=== PATIENT | female | born 1945 | race Caucasian/White ===

== ENCOUNTER 2017-06-07 23:00 | Emergency (ER) | payer MEDICARE, OTHER ==
[2017-06-07] MEDS ORDERED: Zofran 4 MG/2 ML VIAL IV ONE (23:22)
[2017-06-07] MEDS ORDERED: Sodium Chloride 0.9% 1000 ML 1,000 ML IV STA (23:22)
--- NOTE | 2017-06-07 23:28 | ERPHSYRPT ---
- History of Present Illness Time Seen by Provider: 06/07/17 23:16 Source: patient, family Exam Limitations: no limitations Patient Subjective Stated Complaint: pt c/o of nausea, vomiting and fatigue worsening this evening. reports vomiting tonight x3 episodes. states she has been receiving chemotherapy for pancreatic cancer for 5 months. states she has no strength. reports pt had treatment today at [facility] after a week break. Triage Nursing Assessment: pt is aox3, pupils perrl, resps easy and non labored , radial pulses strong and equal. pt is pale warm and dry. skin is loose. pt appears weak. vomitus present on nightgown. pt noted to left chest. Physician History: 71 y/o female with history of pancreatic cancer brought in by ambulance for 2 episodes of nausea and vomiting after restarting her chemotherapy today. Pt's chemo regimen is 3 weeks on and 1 week off. Pt states that was off for a week and started today. Pt also feels very weak and can barely lift herself. The believes she was choking on her vomit. Pt has been having a mild cough. Pt denies any fever, chills, chest pain, shortness of breath, abdominal pain or dizziness. Timing/Duration: today Severity: moderate Associated Symptoms: nausea, vomiting Allergies/Adverse Reactions: corn Allergy (Verified 06/07/17 23:34) Hx Tetanus, Diphtheria Vaccination/Date Given: Yes Hx Influenza Vaccination/Date Given: No Hx Pneumococcal Vaccination/Date Given: No Immunizations Up to Date: Yes - Review of Systems Constitutional: Fatigue, Lethargy, Weakness, No Fever, No Chills Eyes: No Symptoms Ears, Nose, & Throat: No Symptoms Respiratory: Cough, No Dyspnea Cardiac: No Chest Pain, No Edema, No Syncope Abdominal/Gastrointestinal: No Abdominal Pain, No Nausea, No Vomiting, No Diarrhea Genitourinary Symptoms: No Dysuria Musculoskeletal: No Back Pain, No Neck Pain Skin: No Rash Neurological: No Dizziness, No Focal Weakness, No Sensory Changes Psychological: No Symptoms Endocrine: No Symptoms All Other Systems: Reviewed and Negative - Past Medical History Pertinent Past Medical History: Yes Endocrine Medical History: Hypothyroidism Other Medical History: pancreatic cancer DX October 2016. began chemo January - Past Surgical History Past Surgical History: Yes Gastrointestinal: Cholecystectomy Other Surgical History: whipple - 40% of pancreas removed. thyroidectomy - Social History Smoking Status: Never smoker Drug Use: none Patient Lives Alone: No - Female History Hx Now: No - Nursing Vital Signs Nursing Vital Signs: Initial Vital Signs Temperature 99.9 F 06/07/17 23:02 Pulse Rate 117 H 06/07/17 23:02 Respiratory Rate 16 06/07/17 23:02 Blood Pressure 140/74 06/07/17 23:02 O2 Sat by Pulse Oximetry 96 06/07/17 23:02 Pain Scale Pain Intensity 1 - Physical Exam General Appearance: alert, lethargy, cachetic Eye Exam: PERRL/EOMI, eyes nml inspection Ears, Nose, Throat Exam: normal ENT inspection, TMs normal, pharynx normal, moist mucous membranes Neck Exam: normal inspection, non-tender, supple, full range of motion Respiratory Exam: normal breath sounds, lungs clear, No respiratory distress Cardiovascular Exam: regular rate/rhythm, normal heart sounds, normal peripheral pulses Gastrointestinal/Abdomen Exam: soft, normal bowel sounds, No tenderness, No mass Back Exam: normal inspection, normal range of motion, No CVA tenderness, No vertebral tenderness Extremity Exam: normal inspection, normal range of motion, pelvis stable Neurologic Exam: alert, oriented x 3, cooperative, normal mood/affect, nml cerebellar function, nml station & gait, sensation nml, No motor deficits Skin Exam: normal color, warm, dry, No rash Lymphatic Exam: No adenopathy SpO2: 96 Oxygen Delivery: Room Air - Course Nursing assessment & vital signs reviewed: Yes Ordered Tests: Active Orders 24 hr Category Date Time Status IV Insertion STAT Care 06/07/17 23:22 Active CHEST 1 VIEW (PORTABLE) Stat Exams 06/07/17 23:23 Taken AMYLASE Stat Lab 06/07/17 23:45 Completed BLOOD CULTURE Stat Lab 06/07/17 23:22 Received CBC W DIFF Stat Lab 06/07/17 23:45 Completed CMP Stat Lab 06/07/17 23:45 Completed CULTURE,URINE Stat Lab 06/07/17 23:55 Received HCG,QUALITATIVE URINE Stat Lab 06/08/17 Uncollected LIPASE Stat Lab 06/07/17 23:45 Completed Lactic Acid Stat Lab 06/07/17 23:44 Completed Lactic Acid Stat Lab 06/08/17 02:10 Completed Manual Differential NC Stat Lab 06/07/17 23:45 Completed UA W/ MICROSCOPIC Stat Lab 06/07/17 23:55 Completed Medication Summary Discontinued Medications Generic Name Dose Route Start Last Admin Trade Name Luis PRN Reason Stop Dose Admin Sodium Chloride 1,000 mls @ 999 mls/hr 06/07/17 23:22 06/07/17 23:45 Sodium Chloride 0.9% 1000 Ml IV 06/08/17 00:22 999 mls/hr .Q1H1M STA Administration Sodium Chloride Confirm 06/07/17 23:41 Sodium Chloride 0.9% 1000 Ml Administered 06/07/17 23:42 Dose 1,000 mls @ ud .ROUTE .STK-MED ONE Potassium Chloride 20 meq in 100 mls @ 50 mls/hr 06/08/17 00:30 06/08/17 01: 12 Potassium Chloride 20 Meq In Water 100ml IV 06/08/17 02:29 50 mls/hr STAT ONE Administration Potassium Chloride Confirm 06/08/17 00:33 Potassium Chloride 20 Meq In Water 100ml Administered 06/08/17 00:34 Dose 100 mls @ ud IV .STK-MED ONE Sodium Chloride 1,000 mls @ 999 mls/hr 06/08/17 01:03 06/08/17 01:12 Sodium Chloride 0.9% 1000 Ml IV 06/08/17 02:03 999 mls/hr .Q1H1M STA Administration Sodium Chloride Confirm 06/08/17 01:05 Sodium Chloride 0.9% 1000 Ml Administered 06/08/17 01:06 Dose 1,000 mls @ ud .ROUTE .STK-MED ONE Ondansetron HCl 4 mg 06/07/17 23:22 06/07/17 23:45 Zofran 4 Mg/2 Ml Vial IV 06/07/17 23:23 4 mg STAT ONE Administration Ondansetron HCl Confirm 06/07/17 23:41 Zofran 4 Mg/2 Ml Vial Administered 06/07/17 23:42 Dose 4 mg .ROUTE .STK-MED ONE Lab/Rad Data: Laboratory Result Diagrams 06/07/17 23:45 06/07/17 23:45 Laboratory Results 06/08/17 06/07/17 06/07/17 Range/Units 02:10 23:55 23:53 WBC (4.0-10.5) K/mm3 RBC (4.1-5.4) M/mm3 Hgb (12.0-16.0) gm/dl Hct (35-47) % MCV (78-100) fl MCH (26-32) pg MCHC (32-36) g/dl RDW (11.5-14.0) % Plt Count (150-450) K/mm3 MPV (6-9.5) fl Segmented Neutrophils (36.0-66.0) % Band Neutrophils (0.0-2.0) % Lymphocytes (Manual) (24-44) % Monocytes (Manual) (0.0-12.0) % Differential Comment Platelet Estimate (NORMAL) Anisocytosis Sodium (136-145) mEq/L Potassium (3.5-5.1) mEq/L Chloride (98-107) mEq/L Carbon Dioxide (21-32) mEq/L Anion Gap (5-15) MEQ/L BUN (9-20) mg/dL Creatinine (0.55-1.30) mg/dl Estimated GFR ML/MIN Glucose (70-110) MG/DL Lactic Acid 1.0 (0.4-2.0) Calcium (8.5-10.1) mg/dL Total Bilirubin (0.2-1.0) mg/dL AST (15-37) U/L ALT (12-78) U/L Alkaline Phosphatase (46-116) U/L Serum Total Protein (6.4-8.2) gm/dL Albumin (3.4-5.0) g/dL Amylase (25-115) U/L Lipase (73-393) U/L Ur Collection Type CCMS Urine Color YELLOW (YELLOW) Urine Appearance CLEAR (CLEAR) Urine pH 6.5 (5-6) Ur Specific Mary D 1.010 (1.005-1.025) Urine Protein NEGATIVE (Negative) Urine Ketones NEGATIVE (NEGATIVE) Urine Blood NEGATIVE (0-5) Dayo/ul Urine Nitrite NEGATIVE (NEGATIVE) Urine Bilirubin NEGATIVE (NEGATIVE) Urine Urobilinogen NORMAL (0-1) mg/dL Ur Leukocyte Esterase 1+ (NEGATIVE) Urine Microscopic RBC 0-2 (0-2) /HPF Urine Microscopic WBC 5-10 (0-5) /HPF Ur Epithelial Cells MANY (FEW) /HPF Urine Bacteria RARE (NEGATIVE) /HPF Urine Culture Reflexed YES (NO) Urine Glucose NEGATIVE (NEGATIVE) mg/dL Influenza Type A Ag NEGATIVE (NEGATIVE) Influenza Type B Ag NEGATIVE (NEGATIVE) RSV (PCR) NEGATIVE (Negative) Specimen Received 06-08-17 0100 06/07/17 06/07/17 06/07/17 Range/Units 23:45 23:45 23:44 WBC 8.1 (4.0-10.5) K/mm3 RBC 2.70 L (4.1-5.4) M/mm3 Hgb 9.3 L (12.0-16.0) gm/dl Hct 27.9 L (35-47) % MCV 103.3 H (78-100) fl MCH 34.4 H (26-32) pg MCHC 33.3 (32-36) g/dl RDW 14.4 H (11.5-14.0) % Plt Count 129 L (150-450) K/mm3 MPV 10.4 H (6-9.5) fl Segmented Neutrophils 87 H (36.0-66.0) % Band Neutrophils 5 H (0.0-2.0) % Lymphocytes (Manual) 5 L (24-44) % Monocytes (Manual) 3 (0.0-12.0) % Differential Comment ABNORMAL Platelet Estimate DECREASED (NORMAL) Anisocytosis 1+ Sodium 141 (136-145) mEq/L Potassium 2.6 L* (3.5-5.1) mEq/L Chloride 105 (98-107) mEq/L Carbon Dioxide 25.2 (21-32) mEq/L Anion Gap 14.2 (5-15) MEQ/L BUN 10 (9-20) mg/dL Creatinine 0.75 (0.55-1.30) mg/dl Estimated GFR > 60 ML/MIN Glucose 157 H (70-110) MG/DL Lactic Acid 2.1 H (0.4-2.0) Calcium 8.1 L (8.5-10.1) mg/dL Total Bilirubin 0.80 (0.2-1.0) mg/dL AST 198 H (15-37) U/L ALT 79 H (12-78) U/L Alkaline Phosphatase 120 H (46-116) U/L Serum Total Protein 5.9 L (6.4-8.2) gm/dL Albumin 2.9 L (3.4-5.0) g/dL Amylase 18 L (25-115) U/L Lipase 40 L (73-393) U/L Ur Collection Type Urine Color (YELLOW) Urine Appearance (CLEAR) Urine pH (5-6) Ur Specific Mary D (1.005-1.025) Urine Protein (Negative) Urine Ketones (NEGATIVE) Urine Blood (0-5) Dayo/ul Urine Nitrite (NEGATIVE) Urine Bilirubin (NEGATIVE) Urine Urobilinogen (0-1) mg/dL Ur Leukocyte Esterase (NEGATIVE) Urine Microscopic RBC (0-2) /HPF Urine Microscopic WBC (0-5) /HPF Ur Epithelial Cells (FEW) /HPF Urine Bacteria (NEGATIVE) /HPF Urine Culture Reflexed (NO) Urine Glucose (NEGATIVE) mg/dL Influenza Type A Ag (NEGATIVE) Influenza Type B Ag (NEGATIVE) RSV (PCR) (Negative) Specimen Received - Progress Progress: improved Progress Note: 06/08/17 02:50 Pt has a K of 2.6 which was replaced with K rider. Pt also has a lactoc acid of 2.1 which went down after receiving 2 liters of fluids. Pt feels much better being able to ambulate with no difficulties. The CXR, influenza swab and UA are unremarkable. The rest of the labs do not show any acute findings. The patient and have agreed to F/U with her oncologist in the morning for further recommendations. - Departure Time of Disposition: 02:53 Departure Disposition: Home Clinical Impression: Hypokalemia, Chemotherapy induced nausea and vomiting Condition: Stable Critical Care Time: Yes Critical Care Time(excluding separately billable procedures): 75-104 minutes Referrals: CHIKA SCOTT MD [Primary Care Provider] - Instructions: Nausea -- Adult, Vomiting -- Adult, Chemotherapy -- Adult, Hypokalemia Additional Instructions: Follow up with your oncologist later today. Return to the ER if you should continue to have nausea, vomiting, diarrhea, dizziness, cough, shortness of breath, fever or chills.
[2017-06-07] MEDS ORDERED: Zofran 4 MG/2 ML VIAL ONE (23:41)
[2017-06-07] MEDS ORDERED: Sodium Chloride 0.9% 1000 ML 1,000 ML ONE (23:41)
[2017-06-07 23:47] LABS: Lactic Acid 2.1 (0.4-2.0)
[2017-06-08 00:03] LABS: Mean Cell Volume 103.3 fl (78-100); Mean Corpuscular Hemoglobin 34.4 pg (26-32); Mean Platelet Volume 10.4 fl (6-9.5); Platelet Count 129 K/mm3 (150-450); Red Cell Distribution Width 14.4 % (11.5-14.0); White Blood Count 8.1 K/mm3 (4.0-10.5)
[2017-06-08 00:26] LABS: ALBUMIN 2.9 g/dL (3.4-5.0); ALKALINE PHOSPHATASE 120 U/L (46-116); ANION GAP 14.2 MEQ/L (5-15); BLOOD UREA NITROGEN 10 mg/dL (9-20); CHLORIDE 105 mEq/L (98-107); Carbon Dioxide 25.2 mEq/L (21-32); Glucose 157 MG/DL (70-110); LIPASE 40 U/L (73-393); SGOT/AST 198 U/L (15-37); SGPT/ALT 79 U/L (12-78); SODIUM 141 mEq/L (136-145); Total Protein 5.9 gm/dL (6.4-8.2)
[2017-06-08 00:28] LABS: Potassium 2.6 mEq/L (3.5-5.1)
[2017-06-08] MEDS ORDERED: POTASSIUM CHLORIDE 20 mEq IN WATER 100ML 20 MEQ/100 ML BAG IV ONE (00:30)
[2017-06-08] MEDS ORDERED: POTASSIUM CHLORIDE 20 mEq IN WATER 100ML 100 ML IV ONE (00:33)
[2017-06-08] MEDS ORDERED: Sodium Chloride 0.9% 1000 ML 1,000 ML IV STA (01:03)
[2017-06-08 01:04] LABS: Collection Type CCMS; Glucose NEGATIVE (NEGATIVE); Leukocyte Esterase 1+ (NEGATIVE)
[2017-06-08 01:05] LABS: ADD URINE CULTURE? YES (NO); Bacteria RARE /HPF (NEGATIVE); Bilirubin NEGATIVE (NEGATIVE); Blood NEGATIVE Ery/ul (0-5); COMPLETE URINE MICROSCOPIC? YES; Epithelial Cells MANY /HPF (FEW)
[2017-06-08] MEDS ORDERED: Sodium Chloride 0.9% 1000 ML 1,000 ML ONE (01:05)
[2017-06-08 01:59] LABS: ANISOCYTOSIS 1+; BAND 5 % (0.0-2.0); Platelet Estimate DECREASED (NORMAL); Total Cells Counted 100
[2017-06-08 02:03] VITALS: BP 144/70; PULSE 100; O2SAT 96
--- NOTE | 2017-06-08 09:21 | XRAY ---
Indication: Aspiration. Comparison: None Portable chest is rotated translating heart/mediastinal structures. Lungs inflated and clear. Heart is not enlarged. Vascularity normal. Left Port-A-Cath. Bony thorax intact with mild osteopenia and degenerative changes. Impression: Nonacute chest with chronic features.
== END 2017-06-08 03:12 | disposition home or self-care (01) ==
LOC: ED 23:00
DX: E87.6 Hypokalemia (principal); R11.2 Nausea with vomiting, unspecified; T45.1X5A Adverse effect of antineoplastic and immunosuppressive drugs, initial encounter; R53.83 Other fatigue; C25.7 Malignant neoplasm of other parts of pancreas; Z79.899 Other long term (current) drug therapy
CPT/HCPCS: 36000; 36415; 71010; 80053; 81000; 82150; 83605; 83690; 85025; 87040; 87077; 87086; 87186; 87631; 96360; 96361; 96365; 96366; 96374; 99284; J1642; J2405; J3480

== ENCOUNTER 2017-07-28 11:06 | Emergency (ER) | payer MEDICARE, OTHER ==
[2017-07-28] MEDS ORDERED: BACIGUENT PACKET TP ONE (11:37)
[2017-07-28] MEDS ORDERED: XYLOCAINE 1% HCL 20 ML MDV IJ ONE (11:37)
[2017-07-28] MEDS ORDERED: BACIGUENT PACKET ONE (11:42)
[2017-07-28] MEDS ORDERED: XYLOCAINE 1% HCL 20 ML MDV ONE (11:43)
--- NOTE | 2017-07-28 11:43 | ERPHSYRPT ---
- History of Present Illness Time Seen by Provider: 07/28/17 11:32 Source: patient Exam Limitations: no limitations Physician History: 72-year-old white female arrives with complaint of contusion to her head laceration to her right lateral for head symptoms since 07:00 THIS AM. According to the patient she turned too quickly lost balance and struck her head. She did not have any loss of consciousness. Patient does have a history of pancreatic cancer she has recently finished chemotherapy. Past medical history includes hypothyroidism, pancreatic cancer recently finished chemotherapy. Past surgical history includes cholecystectomy Whipple with 40% of her pancreas removed and thyroidectomy. Timing/Duration: today (07:00) Severity: moderate Associated Symptoms: other (laceration right side of fore head), No nausea, No vomiting, No abdominal pain, No shortness of breath, No heartburn, No diaphoresis, No cough, No chills, No chest pain, No fever, No headaches, No loss of appetite, No malaise, No rash, No syncope, No seizure, No weakness Allergies/Adverse Reactions: corn Allergy (Verified 07/28/17 11:22) Home Medications: Ferrous Sulfate [Iron] 325 mg PO DAILY 07/28/17 [History] Levothyroxine Sodium 100 mcg PO DAILY 07/28/17 [History] Multivitamin with Folic Acid [One Daily Multivitamin Tablet] 400 mcg PO DAILY [History] Hx Tetanus, Diphtheria Vaccination/Date Given: Yes Hx Influenza Vaccination/Date Given: No Hx Pneumococcal Vaccination/Date Given: No - Review of Systems Constitutional: No Fever, No Chills Eyes: No Symptoms Ears, Nose, & Throat: No Symptoms Respiratory: No Cough, No Dyspnea Cardiac: No Chest Pain, No Edema, No Syncope Abdominal/Gastrointestinal: No Abdominal Pain, No Nausea, No Vomiting, No Diarrhea Genitourinary Symptoms: No Dysuria Musculoskeletal: No Back Pain, No Neck Pain Skin: Other (laceration right side of forehead) Neurological: No Dizziness, No Focal Weakness, No Sensory Changes Psychological: No Symptoms Endocrine: No Symptoms All Other Systems: Reviewed and Negative - Past Medical History Pertinent Past Medical History: Yes Endocrine Medical History: Hypothyroidism Other Medical History: pancreatic cancer DX October 2016. began chemo January - Past Surgical History Past Surgical History: Yes Gastrointestinal: Cholecystectomy Other Surgical History: whipple - 40% of pancreas removed. thyroidectomy - Social History Smoking Status: Never smoker Drug Use: none Patient Lives Alone: No - Nursing Vital Signs Nursing Vital Signs: Initial Vital Signs Temperature 97.6 F 07/28/17 11:15 Pulse Rate 78 07/28/17 11:15 Respiratory Rate 16 07/28/17 11:15 Blood Pressure 189/47 07/28/17 11:15 O2 Sat by Pulse Oximetry 100 07/28/17 11:15 Pain Scale Pain Intensity 0 - Physical Exam General Appearance: mild distress, other (well-developed elderly white female 3 cm laceration right lateral forehead) Eye Exam: PERRL/EOMI, eyes nml inspection Ears, Nose, Throat Exam: normal ENT inspection, TMs normal, pharynx normal, moist mucous membranes Neck Exam: normal inspection, non-tender, supple, full range of motion Respiratory Exam: normal breath sounds, lungs clear, No respiratory distress Cardiovascular Exam: regular rate/rhythm, normal heart sounds, normal peripheral pulses Gastrointestinal/Abdomen Exam: soft, normal bowel sounds, No tenderness, No mass Back Exam: normal inspection, normal range of motion, No CVA tenderness, No vertebral tenderness Extremity Exam: normal inspection, normal range of motion, pelvis stable Neurologic Exam: alert, oriented x 3, cooperative, grey stock recorder II-XII nml as tested, normal mood/affect, nml cerebellar function, nml station & gait, sensation nml, No motor deficits, No sensory deficit, No disoriented, No confusion, No motor weakness, No facial droop, No slurred speech, No aphasia, No dysarthria, No abnormal grey stock recorder II-XII Skin Exam: other (3 cm gaping laceration right lateral forehead.) - Course Nursing assessment & vital signs reviewed: Yes Ordered Tests: Active Orders 24 hr Category Date Time Status Prepare for Sutures STAT Care 07/28/17 11:37 Active Sutures STAT Care 07/28/17 11:38 Active Wound Care STAT Care 07/28/17 11:37 Active Medication Summary Discontinued Medications Generic Name Dose Route Start Last Admin Trade Name Freq PRN Reason Stop Dose Admin Bacitracin 0.9 gm 07/28/17 11:37 Baciguent Packet TP 07/28/17 11:38 STAT ONE Bacitracin Confirm 07/28/17 11:42 Baciguent Packet Administered 07/28/17 11:43 Dose 1 gm .ROUTE .STK-MED ONE Lidocaine HCl 5 ml 07/28/17 11:37 Xylocaine 1% Hcl 20 Ml Mdv IJ 07/28/17 11:38 STAT ONE Lidocaine HCl Confirm 07/28/17 11:43 Xylocaine 1% Hcl 20 Ml Mdv Administered 07/28/17 11:44 Dose 5 ml .ROUTE .STK-MED ONE - Progress Progress: improved Progress Note: 07/28/17 11:42 This is a 72-year-old white female who has recently finished chemotherapy secondary to pancreatic cancer. She arrives with complaint of a fall with a laceration to the right lateral portion of her fore head. Patient did not have any loss of consciousness she has no sensory deficits. She states she just turned too quickly and lost balance and fell. I've offered to obtain a head CT of this patient she does not want one. Will go ahead anesthetize the area with 1% lidocaine and suture the area. 07/28/17 12:02 3 cm laceration repair right frontal temporal regoin Laceration sterilely prepped and draped. Anesthetized with 1% lidocaine. Sutured repaired with 5 5. 0 Prolene sutures. 2 Steri-Strips applied by nurse and superior and inferior margin of the wound. Benzoin was applied to Augment adhesiveness of the strips. Bacitracin sterile dressing is applied Patient's tetanus is up to date she states less than 5 years. Patient was offered head CT she Declined this.. - Departure Time of Disposition: 12:04 Departure Disposition: Home Clinical Impression: Accidental fall Qualifiers: Encounter type: initial encounter Qualified Code(s): W19.XXXA - Unspecified fall, initial encounter Head contusion Qualifiers: Encounter type: initial encounter Contusion of head detail: unspecified part of head Qualified Code(s): S00.93XA - Contusion of unspecified part of head, initial encounter Forehead laceration Qualifiers: Encounter type: initial encounter Qualified Code(s): S01.81XA - Laceration without foreign body of other part of head, initial encounter Condition: Fair Critical Care Time: No Referrals: CHIKA SCOTT MD [Primary Care Provider] - Instructions: Contusion (DC), Preventing Falls Additional Instructions: Return home. Cold packs to contused area 24-48 hours. Tylenol every 4 hours as needed for pain. Keep laceration clean and dry. Bacitracin to sutured areas until healed (do not apply to Steri-Strips) Follow-up with your family doctor or return if problems Or signs of infection. Sutures out 5 days.
[2017-07-28 12:25] VITALS: BP 185/94; PULSE 66; O2SAT 98
== END 2017-07-28 12:26 | disposition home or self-care (01) ==
LOC: ED 11:06
PROC: 0HQ0XZZ Repair Scalp Skin, External Approach (ICD-10-PCS; principal; 2017-07-28)
DX: S01.81XA Laceration without foreign body of other part of head, initial encounter (principal); S00.93XA Contusion of unspecified part of head, initial encounter; W18.39XA Other fall on same level, initial encounter; Z85.07 Personal history of malignant neoplasm of pancreas
CPT/HCPCS: 12002; 99283; A9270-GY

== ENCOUNTER 2019-07-09 12:08 | Inpatient (IN) | payer MEDICARE, OTHER ==
--- NOTE | 2019-07-09 12:29 | XRAY ---
Indication: Stroke. Multiple contiguous axial images obtained through the head without contrast. Comparison: None Acute parenchymal hemorrhage seen in the deep left temporoparietal lobe measuring 5.2 x 4.5 x 5 cm in greatest AP, transverse, and CC projections. Tiny acute blood layers in the occipital horn of the left ventricle. There is surrounding edema with mass effect effacing the left lateral ventricle as well as midline shifting approximately 9 mm. Elsewhere there is age-appropriate atrophy and moderate periventricular degenerative micro-ischemia. Fourth ventricle is midline without hydrocephalus. Bony calvarium intact. Visualized paranasal sinuses and mastoid air cells are clear. Impression: 1. Large left temporoparietal acute parenchymal hemorrhage with mass effect and midline shifting. Also tiny acute blood in the occipital horn of the left ventricle. 2. Atrophy and degenerative micro-ischemia within normal limits for patient's age. Comment: Immediate telephone report given to Dr. Guan in the ER at 1219 hrs. on July 09, 2019.
[2019-07-09 14:19] LABS: Absolute Neutrophil Ct (ANC) 5.95 (1.4-6.9); BASOPHIL % 0.1 % (0.0-0.4); Basophil (Absolute #) 0.01 (0-0.4); Eosinophil (Absolute #) 0.07 (0-0.5); Hemoglobin 8.5 gm/dl (12.0-16.0); Lymphocyte (Absolute #) 0.38 (1.0-4.6); Lymphocytes % 5.6 % (24.0-44.0); Mean Cell Volume 105.5 fl (78-100); Mean Corpuscular Hemoglobin 35.9 pg (26-32); Mean Platelet Volume 10.2 fl (7.5-11.0); Monocyte (Absolute #) 0.34 (0.0-1.3); Neutrophil % 88.3 % (36.0-66.0); Platelet Count 69 K/mm3 (150-450); Red Blood Count 2.37 M/mm3 (4.1-5.4); Red Cell Distribution Width 14.2 % (11.5-14.0); White Blood Count 6.8 K/mm3 (4.0-10.5)
[2019-07-09 14:26] LABS: Appearance CLEAR (CLEAR); Bilirubin NEGATIVE (NEGATIVE); Blood NEGATIVE Ery/ul (0-5); Glucose NEGATIVE (NEGATIVE); Ketones NEGATIVE (NEGATIVE); Leukocyte Esterase NEGATIVE (NEGATIVE); Mucus SLIGHT /HPF (NEGATIVE); Nitrite NEGATIVE (NEGATIVE); Protein,Urine Dip NEGATIVE (Negative); Specific Gravity 1.016 (1.005-1.025); Urobilinogen NEGATIVE mg/dL (0-1)
[2019-07-09 14:28] LABS: INR 1.19 (0.8-3.0); PROTIME 13.5 SECONDS (9.95-12.35)
[2019-07-09 14:31] LABS: PTT 32.9 SECONDS (25.3-37.0)
[2019-07-09 14:33] LABS: ALBUMIN 3.4 g/dL (3.5-5.0); ALKALINE PHOSPHATASE 384 U/L (38-126); ANION GAP 13.4 MEQ/L (5-15); BLOOD UREA NITROGEN 17 mg/dL (7-17); CHLORIDE 105 mmol/L (98-107); Calcium 8.7 mg/dL (8.4-10.2); Carbon Dioxide 26 mmol/L (22-30); Creatinine 1 0.87 mg/dL (0.52-1.04); Glucose 108 mg/dL (74-106); Potassium 4.3 mmol/L (3.5-5.1); SGOT/AST 166 U/L (14-36); SGPT/ALT 128 U/L (0-35); SODIUM 140 mmol/L (137-145); Total Protein 6.6 g/dL (6.3-8.2)
--- NOTE | 2019-07-09 14:36 | XRAY ---
Indication: Pneumonia. Stroke. Comparison: June 07, 2017. Portable chest remains clear again with a few incidental calcified granulomas. Heart is not enlarged again with left Port-A-Cath. New left neck IV catheter. Bony thorax intact again with mild osteopenia and degenerative changes. Impression: Nonacute chest with chronic features.
--- NOTE | 2019-07-09 14:52 | ERPHSYRPT ---
- History of Present Illness Source: family Exam Limitations: other (Patient with aphasia. EMS and family provided history. ) Patient Subjective Stated Complaint: left sided droop with left sided defecit, last known well time approx 0930 Triage Nursing Assessment: Pt brought in by by EMS, hx of pancreatic cancer, total right side defecit, pt unable to speak, bradycardic, unable to handle secretions, family does not wish to have extreme measures taken to prolong life Physician History: Patient is a 74yo F with a history of pancreatic cancer on chemotherapy presents with acute onset aphasia and flaccid paralysis or Rt. U/LE. Patient is obtunded. Timing/Duration: today ( observed deficits at about 9:30am. He is not sure if patient had deficits earlier. ) Severity: severe Allergies/Adverse Reactions: corn Allergy (Verified 07/28/17 11:22) Home Medications: Ferrous Sulfate [Iron] 325 mg PO DAILY 07/28/17 [History] Levothyroxine Sodium 100 mcg PO DAILY 07/28/17 [History] Multivitamin with Folic Acid [One Daily Multivitamin Tablet] 400 mcg PO DAILY [History] Hx Tetanus, Diphtheria Vaccination/Date Given: Yes Hx Influenza Vaccination/Date Given: No Hx Pneumococcal Vaccination/Date Given: No - Review of Systems All Other Systems: Unable due to condition (Patient aphasic with obvious right side deficit) - Past Medical History Pertinent Past Medical History: Yes Endocrine Medical History: Hypothyroidism Other Medical History: pancreatic cancer DX October 2016. began chemo January - Past Surgical History Past Surgical History: Yes Gastrointestinal: Cholecystectomy Other Surgical History: whipple - 40% of pancreas removed. thyroidectomy - Social History Smoking Status: Never smoker Exposure to second hand smoke: No Drug Use: none Patient Lives Alone: No - Nursing Vital Signs Nursing Vital Signs: Initial Vital Signs Blood Pressure 155/67 07/09/19 12:11 - Browning Coma Scale Best Eye Response (Nirav): (4) open spontaneously Best Verbal Response (Browning): (4) confused conversation - Physical Exam General Appearance: mild distress (Patient lying on stretcher. Unable to tolerate secretions. Oral airway suctioned. ), moderate distress Eye Exam: bilateral eye: normal inspection (pupils are fixed at 4mm bilaterally) Ears, Nose, Throat Exam: normal ENT inspection Neck Exam: normal inspection Respiratory: normal breath sounds Cardiovascular: bradycardia Gastrointestinal: soft Pelvic Exam: not done Rectal Exam: deferred Back Exam: normal inspection Extremity Exam: other (Flaccid paralysis of Rt. U/LE) Peripheral Pulses: femoral (R): 2+, femoral (L): 2+, dorsalis-pedis (R): 2+, dorsalis-pedis (L): 2+ Mental Status: alert, other (Patient appears confused. But responsive. 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 STAT Care 07/09/19 13:36 Active EKG-ER Only STAT Care 07/09/19 13:36 Active Hartmann [Catheter-Markesan Hartmann] STAT Care 07/09/19 13:37 Active IV Insertion STAT Care 07/09/19 13:36 Active IV Insertion-2nd Peripheral STAT Care 07/09/19 13:36 Active NPO (ED) STAT Care 07/09/19 13:47 Active CHEST 1 VIEW (PORTABLE) Stat Exams 07/09/19 13:48 Completed HEAD WITHOUT CONTRAST [CT] Routine Exams 07/09/19 12:16 Completed CBC W DIFF Stat Lab 07/09/19 13:47 Completed CMP Stat Lab 07/09/19 14:15 Completed CULTURE,URINE Stat Lab 07/09/19 14:15 Ordered PROTIME WITH INR Stat Lab 07/09/19 14:15 Completed PTT Stat Lab 07/09/19 14:15 Completed UA W/RFX UR CULTURE Stat Lab 07/09/19 14:15 Completed Transfer Order Routine Transfer 07/09/19 Ordered Lab/Rad Data: Laboratory Result Diagrams 07/09/19 13:47 07/09/19 14:15 Laboratory Results 07/09/19 07/09/19 07/09/19 Range/Units 14:15 14:15 14:15 WBC (4.0-10.5) K/mm3 RBC (4.1-5.4) M/mm3 Hgb (12.0-16.0) gm/dl Hct (35-47) % MCV (78-100) fl MCH (26-32) pg MCHC (32-36) g/dl RDW (11.5-14.0) % Plt Count (150-450) K/mm3 MPV (7.5-11.0) fl Gran % (36.0-66.0) % Eos # (Auto) (0-0.5) Absolute Lymphs (auto) (1.0-4.6) Absolute Monos (auto) (0.0-1.3) Lymphocytes % (24.0-44.0) % Monocytes % (0.0-12.0) % Eosinophils % (0.00-5.0) % Basophils % (0.0-0.4) % Absolute Granulocytes (1.4-6.9) Basophils # (0-0.4) PT 13.5 H (9.95-12.35) SECONDS INR 1.19 (0.8-3.0) APTT 32.9 (25.3-37.0) SECONDS Sodium 140 (137-145) mmol/L Potassium 4.3 (3.5-5.1) mmol/L Chloride 105 (98-107) mmol/L Carbon Dioxide 26 (22-30) mmol/L Anion Gap 13.4 (5-15) MEQ/L BUN 17 (7-17) mg/dL Creatinine 0.87 (0.52-1.04) mg/dL Estimated GFR > 60.0 ML/MIN Glucose 108 H (74-106) mg/dL Calcium 8.7 (8.4-10.2) mg/dL Total Bilirubin 0.60 (0.2-1.3) mg/dL AST 166 H (14-36) U/L ALT 128 H (0-35) U/L Alkaline Phosphatase 384 H (38-126) U/L Serum Total Protein 6.6 (6.3-8.2) g/dL Albumin 3.4 L (3.5-5.0) g/dL Urine Color YELLOW (YELLOW) Urine Appearance CLEAR (CLEAR) Urine pH 5.0 (5-6) Ur Specific [place] 1.016 (1.005-1.025) Urine Protein NEGATIVE (Negative) Urine Ketones NEGATIVE (NEGATIVE) Urine Blood NEGATIVE (0-5) Dayo/ul Urine Nitrite NEGATIVE (NEGATIVE) Urine Bilirubin NEGATIVE (NEGATIVE) Urine Urobilinogen NEGATIVE (0-1) mg/dL Ur Leukocyte Esterase NEGATIVE (NEGATIVE) Urine WBC (Auto) NONE (0-5) /HPF Urine RBC (Auto) NONE (0-2) /HPF U Epithel Cells (Auto) NONE (FEW) /HPF Urine Bacteria (Auto) NONE (NEGATIVE) /HPF Urine Mucus (Auto) SLIGHT (NEGATIVE) /HPF Urine Culture Reflexed ORDERED SEPARATELY (NO) Urine Glucose NEGATIVE (NEGATIVE) mg/dL 07/09/19 Range/Units 13:47 WBC 6.8 (4.0-10.5) K/mm3 RBC 2.37 L (4.1-5.4) M/mm3 Hgb 8.5 L (12.0-16.0) gm/dl Hct 25.0 L (35-47) % MCV 105.5 H (78-100) fl MCH 35.9 H (26-32) pg MCHC 34.0 (32-36) g/dl RDW 14.2 H (11.5-14.0) % Plt Count 69 L (150-450) K/mm3 MPV 10.2 (7.5-11.0) fl Gran % 88.3 H (36.0-66.0) % Eos # (Auto) 0.07 (0-0.5) Absolute Lymphs (auto) 0.38 L (1.0-4.6) Absolute Monos (auto) 0.34 (0.0-1.3) Lymphocytes % 5.6 L (24.0-44.0) % Monocytes % 5.0 (0.0-12.0) % Eosinophils % 1.0 (0.00-5.0) % Basophils % 0.1 (0.0-0.4) % Absolute Granulocytes 5.95 (1.4-6.9) Basophils # 0.01 (0-0.4) PT (9.95-12.35) SECONDS INR (0.8-3.0) APTT (25.3-37.0) SECONDS Sodium (137-145) mmol/L Potassium (3.5-5.1) mmol/L Chloride (98-107) mmol/L Carbon Dioxide (22-30) mmol/L Anion Gap (5-15) MEQ/L BUN (7-17) mg/dL Creatinine (0.52-1.04) mg/dL Estimated GFR ML/MIN Glucose (74-106) mg/dL Calcium (8.4-10.2) mg/dL Total Bilirubin (0.2-1.3) mg/dL AST (14-36) U/L ALT (0-35) U/L Alkaline Phosphatase (38-126) U/L Serum Total Protein (6.3-8.2) g/dL Albumin (3.5-5.0) g/dL Urine Color (YELLOW) Urine Appearance (CLEAR) Urine pH (5-6) Ur Specific [place] (1.005-1.025) Urine Protein (Negative) Urine Ketones (NEGATIVE) Urine Blood (0-5) Dayo/ul Urine Nitrite (NEGATIVE) Urine Bilirubin (NEGATIVE) Urine Urobilinogen (0-1) mg/dL Ur Leukocyte Esterase (NEGATIVE) Urine WBC (Auto) (0-5) /HPF Urine RBC (Auto) (0-2) /HPF U Epithel Cells (Auto) (FEW) /HPF Urine Bacteria (Auto) (NEGATIVE) /HPF Urine Mucus (Auto) (NEGATIVE) /HPF Urine Culture Reflexed (NO) Urine Glucose (NEGATIVE) mg/dL - Progress Progress: unchanged (/family declined intubation. Patient made DNR. Corresponding documents completed. ) Discussed with : Didier (Patient will be admitted to obs. Hospice consulted ) - Departure Departure Disposition: Home (a), Observation Clinical Impression: Hemorrhagic stroke Condition: Stable Critical Care Time: No Referrals: CHIKA SCOTT MD [Primary Care Provider] -
[2019-07-09 15:24] LABS: Slide Review 1 YES
[2019-07-09] MEDS: Morphine PCA 1 MG/ML 30 ML IV PRN (16:48)
[2019-07-09] MEDS: ATROPINE SULFATE EYE DROPS PO PRN (16:49)
[2019-07-09] MEDS: Sodium Chloride 0.9% 1000 ML 1,000 ML IV SCH (16:49)
[2019-07-10] MEDS ORDERED: FEVERALL 650 MG PR PRN (01:03)
[2019-07-10] MEDS: Morphine PCA 1 MG/ML 30 ML IV PRN ×2 (07:36→17:53)
--- NOTE | 2019-07-10 13:38 | PCM.HP ---
History of Present Illness - Chief Complaint Chief Complaint: CVA, HEMIPLEGIA History of Present Illness: is a 74 year old female. with a history of pancreatic cancer on chemotherapy presents with acute onset aphasia and flaccid paralysis or Rt. U/ LE. Patient is obtunded. Timing/Duration: today ( observed deficits at about 9:30am. He is not sure if patient had deficits earlier. ) Severity: severe - Review of Systems All Other Systems: Unable due to condition Medications & Allergies Home Medications: Home Medication List Diphenhydramine HCl 25 mg [Benadryl 25 mg Capsule] 25 mg PO DAILY PRN PRN 07/09/19 [History Confirmed 07/09/19] Fludrocortisone Acetate [Florinef] 0.1 mg PO DAILY 07/09/19 [History Confirmed 07/09/19] Levothyroxine Sodium 100 Mcg [Synthroid 100 Mcg] 100 mcg PO DAILY 07/09/19 [History Confirmed 07/09/19] Lipase/Protease/Amylase [Juan Luis Sanches 24,000 Units Capsule] 1 each PO AC 07/09/19 [ History Confirmed 07/09/19] Pantoprazole Sodium [Protonix] 40 mg PO BID 07/09/19 [History Confirmed 07/09/19 ] Potassium Chloride 20 meq PO DAILY 07/09/19 [History Confirmed 07/09/19] Prochlorperazine Maleate 10 mg [Compazine 10 mg] 10 mg PO Q4HPRN PRN 07/09/19 [ History Confirmed 07/09/19] ondansetron HCL [Ondansetron HCl] 8 mg PO Q8HPRN PRN 07/09/19 [History Confirmed 07/09/19] Allergies/Adverse Reactions: Allergies Allergy/AdvReac Type Severity Reaction Status Date / Time corn Allergy Verified 07/09/19 16:08 - Past Medical History Past Medical History: Yes Neurological History: No Pertinent History ENT History: No Pertinent History Cardiac History: No Pertinent History Respiratory History: No Pertinent History Endocrine Medical History: Hypothyroidism Musculoskelatal History: No Pertinent History GI Medical History: Liver Cancer History: No Pertinent History Pyscho-Social History: No Pertinent History Reproductive Disorders: No Pertinent History Comment: pancreatic cancer DX October 2016. began chemo January. LIVER CANCER 2018- CHEMO CURRENTLY - Female History Are you now?: No - Past Surgical History Past Surgical History: Yes Neuro Surgical History: No Pertinent History Cardiac History: No Pertinent History Respiratory Surgery: No Pertinent History GI Surgical History: Cholecystectomy Genitourinary Surgical Hx: No Pertinent History Musculskeletal Surgical Hx: No Pertinent History Female Surgical History: No Pertinent History Other Surgical History: whipple - 40% of pancreas removed. thyroidectomy - Social History Smoking Status: Never smoker Exposure to second hand smoke: No Alcohol: None Drug Use: none - Physical Exam Vital Signs: Vital Signs - 24 hr Temp Pulse Resp BP Pulse Ox 07/10/19 11:39 98.5 F 57 L 4 L 90/64 94 L 07/10/19 07:56 95 07/10/19 07:36 95 07/10/19 07:10 99 F 67 4 L 86/51 95 07/10/19 07:05 95 07/10/19 05:00 98.7 F 77 7 L 108/53 96 07/10/19 04:48 96 07/10/19 04:00 96 07/10/19 00:48 96 07/10/19 00:30 101.9 F 85 16 127/61 96 07/10/19 00:00 96 07/09/19 20:48 98 07/09/19 20:10 97.4 F 63 22 135/69 98 07/09/19 20:00 98 07/09/19 19:05 93 L 07/09/19 17:37 96.6 F 46 L 18 145/68 93 L 07/09/19 16:48 93 L 07/09/19 16:40 93 L 07/09/19 15:29 96.6 F 46 L 16 145/68 93 L 07/09/19 15:17 97 07/09/19 14:59 98.4 F 44 L 14 131/60 98 07/09/19 13:51 98.1 F 42 L 12 123/58 97 General Appearance: severe distress Neurologic Exam: disoriented Respiratory Exam: diminished breath sounds, prolonged expirations, crackles/ rales, rhonchi Gastrointestinal/Abdomen Exam: soft Results - Labs Lab/Micro Results: Lab Results-Last 24 Hours 07/09/19 07/09/19 07/09/19 Range/Units 13:47 14:15 14:15 WBC 6.8 (4.0-10.5) K/mm3 RBC 2.37 L (4.1-5.4) M/mm3 Hgb 8.5 L (12.0-16.0) gm/dl Hct 25.0 L (35-47) % MCV 105.5 H (78-100) fl MCH 35.9 H (26-32) pg MCHC 34.0 (32-36) g/dl RDW 14.2 H (11.5-14.0) % Plt Count 69 L (150-450) K/mm3 MPV 10.2 (7.5-11.0) fl Gran % 88.3 H (36.0-66.0) % Eos # (Auto) 0.07 (0-0.5) Absolute Lymphs (auto) 0.38 L (1.0-4.6) Absolute Monos (auto) 0.34 (0.0-1.3) Lymphocytes % 5.6 L (24.0-44.0) % Monocytes % 5.0 (0.0-12.0) % Eosinophils % 1.0 (0.00-5.0) % Basophils % 0.1 (0.0-0.4) % Absolute Granulocytes 5.95 (1.4-6.9) Basophils # 0.01 (0-0.4) PT 13.5 H (9.95-12.35) SECONDS INR 1.19 (0.8-3.0) APTT 32.9 (25.3-37.0) SECONDS Sodium 140 (137-145) mmol/L Potassium 4.3 (3.5-5.1) mmol/L Chloride 105 (98-107) mmol/L Carbon Dioxide 26 (22-30) mmol/L Anion Gap 13.4 (5-15) MEQ/L BUN 17 (7-17) mg/dL Creatinine 0.87 (0.52-1.04) mg/dL Estimated GFR > 60.0 ML/MIN Glucose 108 H (74-106) mg/dL Calcium 8.7 (8.4-10.2) mg/dL Total Bilirubin 0.60 (0.2-1.3) mg/dL AST 166 H (14-36) U/L ALT 128 H (0-35) U/L Alkaline Phosphatase 384 H (38-126) U/L Serum Total Protein 6.6 (6.3-8.2) g/dL Albumin 3.4 L (3.5-5.0) g/dL Urine Color (YELLOW) Urine Appearance (CLEAR) Urine pH (5-6) Ur Specific [place] (1.005-1.025) Urine Protein (Negative) Urine Ketones (NEGATIVE) Urine Blood (0-5) Dayo/ul Urine Nitrite (NEGATIVE) Urine Bilirubin (NEGATIVE) Urine Urobilinogen (0-1) mg/dL Ur Leukocyte Esterase (NEGATIVE) Urine WBC (Auto) (0-5) /HPF Urine RBC (Auto) (0-2) /HPF U Epithel Cells (Auto) (FEW) /HPF Urine Bacteria (Auto) (NEGATIVE) /HPF Urine Mucus (Auto) (NEGATIVE) /HPF Urine Culture Reflexed (NO) Urine Glucose (NEGATIVE) mg/dL Slides for Path Review YES 07/09/19 Range/Units 14:15 WBC (4.0-10.5) K/mm3 RBC (4.1-5.4) M/mm3 Hgb (12.0-16.0) gm/dl Hct (35-47) % MCV (78-100) fl MCH (26-32) pg MCHC (32-36) g/dl RDW (11.5-14.0) % Plt Count (150-450) K/mm3 MPV (7.5-11.0) fl Gran % (36.0-66.0) % Eos # (Auto) (0-0.5) Absolute Lymphs (auto) (1.0-4.6) Absolute Monos (auto) (0.0-1.3) Lymphocytes % (24.0-44.0) % Monocytes % (0.0-12.0) % Eosinophils % (0.00-5.0) % Basophils % (0.0-0.4) % Absolute Granulocytes (1.4-6.9) Basophils # (0-0.4) PT (9.95-12.35) SECONDS INR (0.8-3.0) APTT (25.3-37.0) SECONDS Sodium (137-145) mmol/L Potassium (3.5-5.1) mmol/L Chloride (98-107) mmol/L Carbon Dioxide (22-30) mmol/L Anion Gap (5-15) MEQ/L BUN (7-17) mg/dL Creatinine (0.52-1.04) mg/dL Estimated GFR ML/MIN Glucose (74-106) mg/dL Calcium (8.4-10.2) mg/dL Total Bilirubin (0.2-1.3) mg/dL AST (14-36) U/L ALT (0-35) U/L Alkaline Phosphatase (38-126) U/L Serum Total Protein (6.3-8.2) g/dL Albumin (3.5-5.0) g/dL Urine Color YELLOW (YELLOW) Urine Appearance CLEAR (CLEAR) Urine pH 5.0 (5-6) Ur Specific [place] 1.016 (1.005-1.025) Urine Protein NEGATIVE (Negative) Urine Ketones NEGATIVE (NEGATIVE) Urine Blood NEGATIVE (0-5) Dayo/ul Urine Nitrite NEGATIVE (NEGATIVE) Urine Bilirubin NEGATIVE (NEGATIVE) Urine Urobilinogen NEGATIVE (0-1) mg/dL Ur Leukocyte Esterase NEGATIVE (NEGATIVE) Urine WBC (Auto) NONE (0-5) /HPF Urine RBC (Auto) NONE (0-2) /HPF U Epithel Cells (Auto) NONE (FEW) /HPF Urine Bacteria (Auto) NONE (NEGATIVE) /HPF Urine Mucus (Auto) SLIGHT (NEGATIVE) /HPF Urine Culture Reflexed ORDERED SEPARATELY (NO) Urine Glucose NEGATIVE (NEGATIVE) mg/dL Slides for Path Review - Radiology Impressions Radiology Exams & Impressions: Radiology Procedures Category Date Time Status CHEST 1 VIEW (PORTABLE) Stat Exams 07/09/19 13:48 Completed HEAD WITHOUT CONTRAST [CT] Routine Exams 07/09/19 12:16 Completed - Other Procedures and Tests Respiratory Therapy 07/09/19 16:33 Oxygen Nasal Cannula 2 lpm Assessment/Plan (1) Hemorrhagic stroke Current Visit: Yes Status: Acute Assessment & Plan: very poor prognosis, comfort measures Code(s): I61.9 - NONTRAUMATIC INTRACEREBRAL HEMORRHAGE, UNSPECIFIED (2) 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
[2019-07-10] MEDS: ATROPINE SULFATE EYE DROPS PO PRN (14:16)
[2019-07-10] MEDS: Sodium Chloride 0.9% 1000 ML 1,000 ML IV SCH (16:49)
[2019-07-11] MEDS: Morphine PCA 1 MG/ML 30 ML IV PRN ×2 (01:14→16:56)
--- NOTE | 2019-07-11 12:44 | PCM.NOTE ---
Date and Time: 07/11/19 1243 Subjective Assessment: unconscious - Review of Systems All Other Systems: Unable due to condition Objective Exam General Appearance: severe distress OBJECTIVE DATA Vital Signs: Vital Signs - 24 hr Temp Pulse Resp BP Pulse Ox 07/11/19 12:00 96 07/11/19 11:44 99 F 84 3 L 118/56 96 07/11/19 10:28 98.0 F 90 24 118/69 93 L 07/11/19 09:53 93 L 07/11/19 08:00 95 07/11/19 07:18 98.7 F 89 2 L 106/55 95 07/11/19 04:48 94 L 07/11/19 04:15 98.7 F 78 4 L 115/54 94 L 07/11/19 04:00 94 L 07/11/19 01:14 99 07/11/19 00:48 99 07/11/19 00:20 98.6 F 79 6 L 113/58 99 07/11/19 00:00 99 07/10/19 20:48 95 07/10/19 20:00 97.8 F 88 4 L 115/55 95 07/10/19 19:42 95 07/10/19 17:53 96 07/10/19 16:21 97.9 F 59 L 4 L 88/44 96 07/10/19 16:00 96 Pain Assessment - Last Documented Pain Intensity 0 Pain Scale Used FLACC Intake and Output: Intake & Output 07/09/19 07/10/19 07/11/19 07/12/19 11:59 11:59 11:59 11:59 Intake Total 248 464 Output Total 450 135 Balance -202 329 Weight 48.3 kg Radiology Exams: Radiology Procedures Category Date Time Status CHEST 1 VIEW (PORTABLE) Stat Exams 07/09/19 13:48 Completed HEAD WITHOUT CONTRAST [CT] Routine Exams 07/09/19 12:16 Completed Multi-Disciplinary Progress Notes: Multi-Disciplinary Progress Notes 07/11/19 11:31 Case Management Note by Renuka Calles S/W PATIENT'S AND DAUGHTER AT THIS TIME- THEY WOULD LIKE TO REMAIN AT THE HOSPITAL THEY FEEL THE TRANSITION HOME WOULD BE A HARDSHIP ON PATIENT D/ T DISTANCE AND SUCH. SUPPORT OFFERED. 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
--- NOTE | 2019-07-12 07:39 | PCM.NOTE ---
Date and Time: 07/12/19 0737 Subjective Assessment: unconscious - Review of Systems All Other Systems: Unable due to condition Objective Exam General Appearance: other (unconscious) Respiratory Exam: diminished breath sounds Cardiovascular Exam: capillary refill >3 sec OBJECTIVE DATA Vital Signs: Vital Signs - 24 hr Temp Pulse Resp BP Pulse Ox 07/12/19 04:56 96 07/12/19 04:00 98.9 F 78 3 L 111/56 96 07/12/19 00:56 96 07/12/19 00:00 3 L 96 07/11/19 21:05 98 07/11/19 20:56 97 07/11/19 20:00 98.2 F 52 L 5 L 110/55 97 07/11/19 16:56 97 07/11/19 16:53 98.6 F 73 2 L 97/51 97 07/11/19 16:00 97 07/11/19 12:00 96 07/11/19 11:44 99 F 84 3 L 118/56 96 07/11/19 10:28 98.0 F 90 24 118/69 93 L 07/11/19 09:53 93 L 07/11/19 08:00 95 Pain Assessment - Last Documented Pain Intensity 0 Pain Scale Used FLACC Intake and Output: Intake & Output 07/09/19 07/10/19 07/11/19 07/12/19 11:59 11:59 11:59 11:59 Intake Total 248 464 482 Output Total 450 135 375 Balance -202 329 107 Weight 48.3 kg Multi-Disciplinary Progress Notes: Multi-Disciplinary Progress Notes 07/11/19 11:31 Case Management Note by Renuka Calles S/W PATIENT'S AND DAUGHTER AT THIS TIME- THEY WOULD LIKE TO REMAIN AT THE HOSPITAL THEY FEEL THE TRANSITION HOME WOULD BE A HARDSHIP ON PATIENT D/ T DISTANCE AND SUCH. SUPPORT OFFERED. 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
[2019-07-12] MEDS: Morphine PCA 1 MG/ML 30 ML IV PRN ×2 (08:12→23:47)
[2019-07-12] MEDS: Sodium Chloride 0.9% 1000 ML 1,000 ML IV SCH (18:47)
--- NOTE | 2019-07-13 06:26 | PCM.NOTE ---
Date and Time: 07/13/19624 Subjective Assessment: comfortable - Review of Systems All Other Systems: Unable due to condition Objective Exam General Appearance: mild distress Respiratory Exam: diminished breath sounds Cardiovascular Exam: tachycardia OBJECTIVE DATA Vital Signs: Vital Signs - 24 hr Temp Pulse Resp BP Pulse Ox 07/13/19 04:00 96 H 4 L 96 07/13/19 01:14 96 07/13/19 00:00 4 L 96 07/12/19 23:47 97 07/12/19 20:32 96 07/12/19 19:53 96 07/12/19 19:28 99.0 F 88 4 L 122/60 96 07/12/19 16:00 98.0 F 96 H 10 L 123/57 94 L 07/12/19 12:00 98.4 F 83 6 L 111/53 83 L 07/12/19 08:11 99 07/12/19 07:44 97.9 F 90 8 L 129/62 99 Pain Assessment - Last Documented Pain Intensity 0 Pain Scale Used FLACC Intake and Output: Intake & Output 07/10/19 07/11/19 07/12/19 07/13/19 11:59 11:59 11:59 11:59 Intake Total 248 464 482 454 Output Total 450 135 375 400 Balance -202 329 107 54 Weight 48.3 kg Assessment/Plan (1) Hemorrhagic stroke Current Visit: Yes Status: Acute Assessment & Plan: Chief Complaint Diagnosis CVA, HEMIPLEGIA Allergies Allergy/AdvReac Type Severity Reaction Status Date / Time corn Allergy Verified 07/09/19 16:08 Vital Signs (Last 24 hours) Temp Pulse Resp BP Pulse Ox 07/13/19 04:00 96 H 4 L 96 07/13/19 01:14 96 07/13/19 00:00 4 L 96 07/12/19 23:47 97 07/12/19 20:32 96 07/12/19 19:53 96 07/12/19 19:28 99.0 F 88 4 L 122/60 96 07/12/19 16:00 98.0 F 96 H 10 L 123/57 94 L 07/12/19 12:00 98.4 F 83 6 L 111/53 83 L 07/12/19 08:11 99 07/12/19 07:44 97.9 F 90 8 L 129/62 99 Home Medications Medication Instructions Recorded Confirmed Last Taken Type Diphenhydramine HCl 25 mg 25 mg PO DAILY PRN PRN 07/09/19 07/09/19 Unknown History [Benadryl 25 mg Capsule] Fludrocortisone Acetate [Florinef] 0.1 mg PO DAILY 07/09/19 07/09/19 07/08/19 History Levothyroxine Sodium 100 Mcg 100 mcg PO DAILY 07/09/19 07/09/19 07/08/19 History [Synthroid 100 Mcg] Lipase/Protease/Amylase [Creon Dr 1 each PO AC 07/09/19 07/09/19 07/08/19 History 24,000 Units Capsule] Pantoprazole Sodium [Protonix] 40 mg PO BID 07/09/19 07/09/19 07/08/19 History Potassium Chloride 20 meq PO DAILY 07/09/19 07/09/19 07/08/19 History Prochlorperazine Maleate 10 mg 10 mg PO Q4HPRN PRN 07/09/19 07/09/19 Unknown History [Compazine 10 mg] ondansetron HCL [Ondansetron HCl] 8 mg PO Q8HPRN PRN 07/09/19 07/09/19 Unknown History Current Medications Generic Name Dose Route Start Last Admin Trade Name Freq PRN Reason Stop Dose Admin Acetaminophen 650 mg 07/10/19 01:03 07/10/19 01:06 [place] 650 Mg CA 08/09/19 01:02 650 mg Q4H PRN PRN Administration PAIN AND/OR FEVER Atropine Sulfate 0.2 ml 07/09/19 16:31 07/10/19 14:16 Atropine Sulfate Eye Drops PO 08/08/19 16:30 0.2 ml UD PRN Administration SECRETIONS Sodium Chloride 1,000 mls @ 20 mls/hr 07/09/19 16:45 07/12/19 18:47 Sodium Chloride 0.9% 1000 Ml IV 08/08/19 16:44 20 mls/hr .Q24H CINTIA Administration Morphine Sulfate 30 mg 07/09/19 16:29 07/12/19 23:47 Morphine Head Of History 1 Mg/Ml 30 Ml IV 07/14/19 16:28 30 mg PRN PRN Administration PAIN Intake & Output (Last 24 hours) 07/10/19 07/11/19 07/12/19 07/13/19 11:59 11:59 11:59 11:59 Intake Total 248 464 482 454 Output Total 450 135 375 400 Balance -202 329 107 54 Weight 48.3 kg Patient Care Notes (Last 24 hours) 07/12/19 19:29 PUBLIC SPEAKER Note by [facility] nurse aware of pts resp being 4 Initialized on 07/12/19 19:29 - END OF NOTE Code(s): I61.9 - NONTRAUMATIC INTRACEREBRAL HEMORRHAGE, UNSPECIFIED (2) 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
[2019-07-13] MEDS: Morphine PCA 1 MG/ML 30 ML IV PRN (14:07)
[2019-07-14] MEDS: Morphine PCA 1 MG/ML 30 ML IV PRN (05:45)
--- NOTE | 2019-07-14 13:18 | PCM.NOTE ---
Date and Time: 07/14/19 1317 Subjective Assessment: unconsciuos - Review of Systems All Other Systems: Unable due to condition Objective Exam General Appearance: severe distress OBJECTIVE DATA Vital Signs: Vital Signs - 24 hr Temp Pulse Resp BP Pulse Ox 07/14/19 08:00 97.6 F 111 H 8 L 135/61 92 L 07/14/19 07:34 92 L 07/14/19 05:48 92 L 07/14/19 05:45 92 L 07/14/19 04:00 99.0 F 107 H 8 L 141/64 92 L 07/14/19 02:00 92 L 07/14/19 00:00 111 H 6 L 94 L 07/13/19 22:00 94 L 07/13/19 20:35 91 L 07/13/19 20:27 88 L 07/13/19 20:00 100.1 F 110 H 6 L 129/62 94 L 07/13/19 16:00 99.9 F 92 H 6 L 116/58 92 L Oxygen-Last 24 hours Oxygen Flowrate (L/min)-RT 4 Oxygen Flowrate (L/min)-RT 2 Pain Assessment - Last Documented Pain Intensity 0 Pain Scale Used FLACC Intake and Output: Intake & Output 07/12/19 07/13/19 07/14/19 07/15/19 11:59 11:59 11:59 11:59 Intake Total 482 454 484 Output Total 375 1400 275 Balance 107 -946 209 Assessment/Plan (1) Hemorrhagic stroke Current Visit: Yes Status: Acute Code(s): I61.9 - NONTRAUMATIC INTRACEREBRAL HEMORRHAGE, UNSPECIFIED (2) 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
[2019-07-14 14:00] VITALS: BP 113/53; PULSE 103; O2SAT 94
[2019-07-14] MEDS ORDERED: Morphine PCA 1 MG/ML 30 ML IV PRN (17:00)
--- NOTE | 2019-07-15 12:18 | PCM.DS ---
Discharge Summary Date of Admission: 07/10/19 08:00 Admitting Physician: CHIKA SCOTT Primary Care Provider: CHIKA SCOTT Allergies Allergies corn Allergy (Verified 07/09/19 16:08) Hospital Summary - Hospital Course Hospital Course: Chief Complaint Diagnosis CVA, HEMIPLEGIA Allergies Allergy/AdvReac Type Severity Reaction Status Date / Time corn Allergy Verified 07/09/19 16:08 Home Medications Medication Instructions Recorded Confirmed Last Taken Type Diphenhydramine HCl 25 mg 25 mg PO DAILY PRN PRN 07/09/19 07/09/19 Unknown History [Benadryl 25 mg Capsule] Fludrocortisone Acetate [Florinef] 0.1 mg PO DAILY 07/09/19 07/09/19 07/08/19 History Levothyroxine Sodium 100 Mcg 100 mcg PO DAILY 07/09/19 07/09/19 07/08/19 History [Synthroid 100 Mcg] Lipase/Protease/Amylase [Creon Dr 1 each PO AC 07/09/19 07/09/19 07/08/19 History 24,000 Units Capsule] Pantoprazole Sodium [Protonix] 40 mg PO BID 07/09/19 07/09/19 07/08/19 History Potassium Chloride 20 meq PO DAILY 07/09/19 07/09/19 07/08/19 History Prochlorperazine Maleate 10 mg 10 mg PO Q4HPRN PRN 07/09/19 07/09/19 Unknown History [Compazine 10 mg] ondansetron HCL [Ondansetron HCl] 8 mg PO Q8HPRN PRN 07/09/19 07/09/19 Unknown History Current Medications Discontinued Medications Generic Name Dose Route Start Last Admin Trade Name Freq PRN Reason Stop Dose Admin Acetaminophen 650 mg 07/10/19 01:03 07/10/19 01:06 Feverall 650 Mg [place] 08/09/19 01:02 650 mg Q4H PRN PRN Administration PAIN AND/OR FEVER Atropine Sulfate 0.2 ml 07/09/19 16:31 07/10/19 14:16 Atropine Sulfate Eye Drops PO 08/08/19 16:30 0.2 ml UD PRN Administration SECRETIONS Sodium Chloride 1,000 mls @ 20 mls/hr 07/09/19 16:45 07/12/19 18:47 Sodium Chloride 0.9% 1000 Ml IV 08/08/19 16:44 20 mls/hr .Q24H CINTIA Administration Morphine Sulfate 30 mg 07/09/19 16:29 07/14/19 05:45 Morphine [employer] 1 Mg/Ml 30 Ml IV 07/14/19 16:28 30 mg PRN PRN Administration PAIN Intake & Output (Last 24 hours) 07/13/19 07/14/19 07/15/19 07/16/19 11:59 11:59 11:59 11:59 Intake Total 454 484 0 Output Total 1400 275 Balance -946 209 0 Patient Care Notes (Last 24 hours) 07/14/19 14:43 Case Management Note by Tamia Martinez DR. ROUNDED AND EVALUATED - DISCUSSED SWING BED WITH PT'S / FAMILY AT BEDSIDE. WANTS PT TO REMAIN HERE, FEELS THAT IT WOULD BE TOO HARD ON PT TO BE MOVED AT PRESENT TIME. REQUESTS TO CONTINUE COMFORT MEASURES. EMOTIONAL SUPPORT PROVIDED. ALL QUESTIONS ANSWERED BY DR. SCOTT. FAMILY VERBALIZED UNDERSTANDING AND ALL IN AGREEMENT. Initialized on 07/14/19 14:43 - END OF NOTE - Vitals & Intake/Output Vital Signs: Vital Signs Temperature 97.2 F 07/14/19 12:00 Pulse Rate 103 H 07/14/19 12:00 Respiratory Rate 10 L 07/14/19 12:00 Blood Pressure 113/53 07/14/19 12:00 O2 Sat by Pulse Oximetry 94 L 07/14/19 12:00 Intake & Output: Intake & Output 07/13/19 07/14/19 07/15/19 07/16/19 11:59 11:59 11:59 11:59 Intake Total 454 484 0 Output Total 1400 275 Balance -946 209 0 - Lab Result Diagrams: 07/09/19 13:47 07/09/19 14:15 - Procedures and Test Procedures and Tests throughout Hospitalization: Therapy Orders & Screens 07/09/19 16:05 OT Screen per Nursing Assess Comment: Protocol Order Physician Instructions: Greater than 3 points order OT Admission Screening Reason For Exam: Triggered on Admission Diagnosis: CVA, HEMIPLEGIA Open Wound/Cellutlitis/Pressure Ulcers: No Acute Fx/ORIF/Change in wt bearing status: No Severe MUSCULOSKELETAL pain: No ADL Dysfunction: No Acute CVA w/Hemiparesis/Hemiplegia: Yes Decreased Functional Mobility/Strength: No Sprain/Strain: No Acute Post-op Mobility Dysfunction: No Total Points: 5 PT Screen per Nursing Assess Comment: Protocol Order Physician Instructions: Greater than 3 points order PT Admission Screenin Reason For Exam: Triggered on Admission Diagnosis: CVA, HEMIPLEGIA Open Wound/Cellutlitis/Pressure Ulcers: No Acute Fx/ORIF/Change in wt bearing status: No Severe MUSCULOSKELETAL pain: No ADL Dysfunction: No Acute CVA w/Hemiparesis/Hemiplegia: Yes Decreased Functional Mobility/Strength: No Sprain/Strain: No Acute Post-op Mobility Dysfunction: No Total Points: 5 07/09/19 16:33 Oxygen Nasal Cannula 2 lpm Comment: Diagnosis: CVA, HEMIPLEGIA Discharge Exam Neurologic Exam: other (unconscious) Final Diagnosis/Problem List - Final Discharge Diagnosis/Problem (1) Hemorrhagic stroke Status: Acute Code(s): I61.9 - NONTRAUMATIC INTRACEREBRAL HEMORRHAGE, UNSPECIFIED (2) Pancreatic cancer metastasized to intra-abdominal lymph node Status: Acute Code(s): C25.9 - MALIGNANT NEOPLASM OF PANCREAS, UNSPECIFIED; C77.2 - SECONDARY AND UNSP MALIGNANT NEOPLASM OF INTRA-ABD NODES (3) Pancreatic cancer metastasized to liver Status: Acute Code(s): C25.9 - MALIGNANT NEOPLASM OF PANCREAS, UNSPECIFIED; C78.7 - SECONDARY MALIG NEOPLASM OF LIVER AND INTRAHEPATIC BILE DUCT - Discharge Discharge Date: 07/14/19 [facility] Condition: Stable Prescriptions: No Action Diphenhydramine HCl 25 mg [Benadryl 25 mg Capsule] 25 mg PO DAILY PRN PRN PRN Reason: Allergies Fludrocortisone Acetate [Florinef] 0.1 mg PO DAILY Pantoprazole Sodium [Protonix] 40 mg PO BID Lipase/Protease/Amylase [Creon Dr 24,000 Units Capsule] 1 each PO AC ondansetron HCL [Ondansetron HCl] 8 mg PO Q8HPRN PRN PRN Reason: Nausea Prochlorperazine Maleate 10 mg [Compazine 10 mg] 10 mg PO Q4HPRN PRN PRN Reason: Nausea Levothyroxine Sodium 100 Mcg [Synthroid 100 Mcg] 100 mcg PO DAILY Potassium Chloride 20 meq PO DAILY Follow up with: CHIKA SCOTT MD [Primary Care Provider] - 1 Week
== END 2019-07-14 16:00 | disposition swing bed (61) | DRG 65 ==
LOC: ED 12:08 → MED SURG 15:19 → OBSVTOIN 07-10 08:00
PROVIDERS: ADMIT General Practice; ATTEND General Practice
DX: I61.9 Nontraumatic intracerebral hemorrhage, unspecified (principal); C25.9 Malignant neoplasm of pancreas, unspecified; C77.2 Secondary and unspecified malignant neoplasm of intra-abdominal lymph nodes; C78.7 Secondary malignant neoplasm of liver and intrahepatic bile duct; I69.120 Aphasia following nontraumatic intracerebral hemorrhage; Z79.899 Other long term (current) drug therapy
CPT/HCPCS: 36000; 36415; 51702; 70450; 71045; 80053; 81001; 85025; 85610; 85730; 93005; 93041; 94760; 99285; G0378; J2270; A9270-GY

== ENCOUNTER 2019-07-14 16:00 | Inpatient (IN) | payer MEDICARE, OTHER ==
[2019-07-14] MEDS ORDERED: Sodium Chloride 0.9% 1000 ML 1,000 ML IV SCH (16:46)
[2019-07-14] MEDS ORDERED: ATROPINE SULFATE EYE DROPS PO PRN (16:46)
[2019-07-14] MEDS ORDERED: Aplisol ID ONE (16:46)
[2019-07-14] MEDS: Morphine PCA 1 MG/ML 30 ML IV PRN (20:58)
[2019-07-15] MEDS: Morphine PCA 1 MG/ML 30 ML IV PRN (11:38)
--- NOTE | 2019-07-15 12:14 | PCM.HP.ADD ---
Addendum to History & Physical - History & Physical Addendum Addendum to History & Physical: This certifies that the History & Physical in the electronic chart reflects the current health status of the patient. If there are changes in the H&P these changes/exceptions are listed as follows.
--- NOTE | 2019-07-15 12:15 | PCM.NOTE ---
Date and Time: 07/15/19 1214 doing ok - Review of Systems All Other Systems: Unable due to condition Objective Exam Neurologic Exam: other (unconscious) OBJECTIVE DATA Vital Signs: Vital Signs - 24 hr Temp Pulse Resp BP Pulse Ox 07/15/19 11:38 97 07/15/19 07:34 97 07/15/19 07:22 99 F 07/15/19 04:58 92 L 07/15/19 00:58 92 L 07/14/19 21:19 96 07/14/19 20:58 95 07/14/19 20:00 99.2 F 99 H 12 117/58 95 07/14/19 17:00 96 07/14/19 16:00 96.9 F 102 H 8 L 119/56 95 Pain Assessment - Last Documented Pain Scale Used FLACC Intake and Output: Intake & Output 07/13/19 07/14/19 07/15/19 07/16/19 11:59 11:59 11:59 11:59 Intake Total 503 Output Total 275 675 Balance -275 -172 Weight 48.3 kg Multi-Disciplinary Progress Notes: Multi-Disciplinary Progress Notes 07/15/19 09:36 Case Management Note by Renuka Calles S/W FAMILY ABOUT SWINGBED PROGRAM. SWINGBED CONSENTS SIGNED AT THIS TIME. Initialized on 07/15/19 09:36 - END OF NOTE Assessment/Plan (1) Hemorrhagic stroke Current Visit: Yes Status: Acute Code(s): I61.9 - NONTRAUMATIC INTRACEREBRAL HEMORRHAGE, UNSPECIFIED (2) Pancreatic cancer metastasized to intra-abdominal lymph node Current Visit: Yes Status: Acute Code(s): C25.9 - MALIGNANT NEOPLASM OF PANCREAS, UNSPECIFIED; C77.2 - SECONDARY AND UNSP MALIGNANT NEOPLASM OF INTRA- ABD NODES
[2019-07-16] MEDS: Morphine PCA 1 MG/ML 30 ML IV PRN ×3 (02:44→23:27)
[2019-07-16] MEDS: FEVERALL 650 MG PR PRN ×2 (04:50→16:11)
--- NOTE | 2019-07-16 13:01 | PCM.NOTE ---
Date and Time: 07/16/19 1300 Subjective Assessment: unconsciuos - Review of Systems All Other Systems: Unable due to condition OBJECTIVE DATA Vital Signs: Vital Signs - 24 hr Temp Pulse Resp BP Pulse Ox 07/16/19 11:38 90 L 07/16/19 10:44 90 L 07/16/19 08:58 90 L 07/16/19 07:38 90 L 07/16/19 07:32 90 L 07/16/19 07:00 100.6 F 114 H 10 L 139/63 93 L 07/16/19 05:12 96 07/16/19 04:58 96 07/15/19 19:07 96 07/15/19 19:00 104 H 22 94 L 07/15/19 18:24 97 Pain Assessment - Last Documented Pain Intensity 0 [facility] Scale [facility] Intake and Output: Intake & Output 07/14/19 07/15/19 07/16/19 07/17/19 11:59 11:59 11:59 11:59 Intake Total 503 476 Output Total 611 675 700 Balance -275 -172 -224 Weight 48.3 kg Assessment/Plan (1) Hemorrhagic stroke Current Visit: Yes Status: Acute Code(s): I61.9 - NONTRAUMATIC INTRACEREBRAL HEMORRHAGE, UNSPECIFIED (2) Pancreatic cancer metastasized to intra-abdominal lymph node Current Visit: Yes Status: Acute Code(s): C25.9 - MALIGNANT NEOPLASM OF PANCREAS, UNSPECIFIED; C77.2 - SECONDARY AND UNSP MALIGNANT NEOPLASM OF INTRA- ABD NODES
--- NOTE | 2019-07-16 18:18 | PCM.DS ---
Discharge Summary Date of Admission: 07/14/19 16:00 Admitting Physician: CHIKA SCOTT Primary Care Provider: CHIKA SCOTT Allergies Allergies corn Allergy (Verified 07/09/19 16:08) Hospital Summary - Hospital Course Hospital Course: Chief Complaint Diagnosis END OF LIFE CARE - HEMORRHAGIC STROKE Allergies Allergy/AdvReac Type Severity Reaction Status Date / Time corn Allergy Verified 07/09/19 16:08 Vital Signs (Last 24 hours) Temp Pulse Resp BP Pulse Ox 07/16/19 17:55 84 L 07/16/19 14:44 84 L 07/16/19 12:58 84 L 07/16/19 11:38 90 L 07/16/19 10:44 90 L 07/16/19 08:58 90 L 07/16/19 07:38 90 L 07/16/19 07:32 90 L 07/16/19 07:00 100.6 F 114 H 10 L 139/63 93 L 07/16/19 05:12 96 07/16/19 04:58 96 07/15/19 19:07 96 07/15/19 19:00 104 H 22 94 L 07/15/19 18:24 97 Current Medications Generic Name Dose Route Start Last Admin Trade Name Freq PRN Reason Stop Dose Admin Acetaminophen 650 mg 07/14/19 16:46 07/16/19 16:11 Feverall 650 Mg [place] 08/09/19 01:02 650 mg Q4H PRN PRN Administration PAIN AND/OR FEVER Atropine Sulfate 0.2 ml 07/14/19 16:46 Atropine Sulfate Eye Drops PO 08/08/19 16:30 UD PRN SECRETIONS Sodium Chloride 1,000 mls @ 20 mls/hr 07/14/19 16:46 07/15/19 00:17 Sodium Chloride 0.9% 1000 Ml IV 08/08/19 16:44 20 mls/hr .Q24H CINTIA Administration Morphine Sulfate 30 mg 07/14/19 16:57 07/16/19 17:55 Morphine Gun Striper 1 Mg/Ml 30 Ml IV 07/19/19 16:56 30 units PRN PRN Administration PAIN Discontinued Medications Generic Name Dose Route Start Last Admin Trade Name Freq PRN Reason Stop Dose Admin Tuberculin PPD 5 unit 07/14/19 16:46 07/16/19 08:19 Aplisol ID 07/14/19 16:47 Not Given ONCE ONE Intake & Output (Last 24 hours) 07/14/19 07/15/19 07/16/19 07/17/19 11:59 11:59 11:59 11:59 Intake Total 503 476 Output Total 275 675 700 50 Balance -275 -172 -224 -50 Weight 48.3 kg - Vitals & Intake/Output Vital Signs: Vital Signs Temperature 100.6 F 07/16/19 07:00 Pulse Rate 114 H 07/16/19 07:00 Respiratory Rate 10 L 07/16/19 07:00 Blood Pressure 139/63 07/16/19 07:00 O2 Sat by Pulse Oximetry 84 L 07/16/19 17:55 Intake & Output: Intake & Output 07/14/19 07/15/19 07/16/19 07/17/19 11:59 11:59 11:59 11:59 Intake Total 503 476 Output Total 275 675 700 50 Balance -275 -172 -224 -50 Weight 48.3 kg - Procedures and Test Procedures and Tests throughout Hospitalization: Therapy Orders & Screens 07/14/19 16:46 OT Screen per Nursing Assess Comment: Protocol Order Physician Instructions: Greater than 3 points order OT Admission Screening Reason For Exam: Triggered on Admission Diagnosis: CVA, HEMIPLEGIA Open Wound/Cellutlitis/Pressure Ulcers: No Acute Fx/ORIF/Change in wt bearing status: No Severe MUSCULOSKELETAL pain: No ADL Dysfunction: No Acute CVA w/Hemiparesis/Hemiplegia: Yes Decreased Functional Mobility/Strength: No Sprain/Strain: No Acute Post-op Mobility Dysfunction: No Total Points: 5 Oxygen Nasal Cannula 2 lpm Comment: Diagnosis: CVA, HEMIPLEGIA Discharge Exam General Appearance: no apparent distress, alert Neurologic Exam: alert, oriented x 3, cooperative, normal mood/affect, nml cerebellar function, sensation nml, No motor deficits Eye Exam: PERRL, EOMI, eyes nml inspection Ears, Nose, Throat Exam: normal ENT inspection, pharynx normal, moist mucous membranes Neck Exam: normal inspection, non-tender, supple, full range of motion Respiratory Exam: normal breath sounds, lungs clear, No respiratory distress Cardiovascular Exam: regular rate/rhythm, normal heart sounds Gastrointestinal/Abdomen Exam: soft, No tenderness, No mass Pelvic Exam: deferred Rectal Exam: deferred Back Exam: normal inspection, normal range of motion, No CVA tenderness, No vertebral tenderness Extremity Exam: normal inspection, normal range of motion Skin Exam: normal color, warm, dry Final Diagnosis/Problem List - Final Discharge Diagnosis/Problem (1) Hemorrhagic stroke Current Visit: Yes Status: Acute Code(s): I61.9 - NONTRAUMATIC INTRACEREBRAL HEMORRHAGE, UNSPECIFIED (2) Pancreatic cancer metastasized to intra-abdominal lymph node Current Visit: Yes Status: Acute Code(s): C25.9 - MALIGNANT NEOPLASM OF PANCREAS, UNSPECIFIED; C77.2 - SECONDARY AND UNSP MALIGNANT NEOPLASM OF INTRA- ABD NODES - Discharge Discharge Date: 07/14/19 Disposition: Swing Bed @ [facility] Condition: Stable Prescriptions: No Action Diphenhydramine HCl 25 mg [Benadryl 25 mg Capsule] 25 mg PO DAILY PRN PRN PRN Reason: Allergies Fludrocortisone Acetate [Florinef] 0.1 mg PO DAILY Pantoprazole Sodium [Protonix] 40 mg PO BID Lipase/Protease/Amylase [Creon Dr 24,000 Units Capsule] 1 each PO AC ondansetron HCL [Ondansetron HCl] 8 mg PO Q8HPRN PRN PRN Reason: Nausea Prochlorperazine Maleate 10 mg [Compazine 10 mg] 10 mg PO Q4HPRN PRN PRN Reason: Nausea Levothyroxine Sodium 100 Mcg [Synthroid 100 Mcg] 100 mcg PO DAILY Potassium Chloride 20 meq PO DAILY Follow up with: CHIKA SCOTT MD [Primary Care Provider] - 1 Week
[2019-07-16 18:20] VITALS: BP 76/36; PULSE 144
--- NOTE | 2019-07-16 18:30 | PCM.DS ---
Discharge Summary Date of Admission: 07/14/19 16:00 Date of Discharge: 07/14/19 Admitting Physician: CHIKA SCOTT Primary Care Provider: CHIKA SCOTT Allergies Allergies corn Allergy (Verified 07/09/19 16:08) Hospital Summary - Hospital Course Hospital Course: Chief Complaint Diagnosis END OF LIFE CARE - HEMORRHAGIC STROKE Allergies Allergy/AdvReac Type Severity Reaction Status Date / Time corn Allergy Verified 07/09/19 16:08 Vital Signs (Last 24 hours) Temp Pulse Resp BP Pulse Ox 07/16/19 17:55 84 L 07/16/19 16:00 100.7 F 144 H 20 76/36 82 L 07/16/19 14:44 84 L 07/16/19 12:58 84 L 07/16/19 11:38 90 L 07/16/19 10:44 90 L 07/16/19 08:58 90 L 07/16/19 07:38 90 L 07/16/19 07:32 90 L 07/16/19 07:00 100.6 F 114 H 10 L 139/63 93 L 07/16/19 05:12 96 07/16/19 04:58 96 07/15/19 19:07 96 07/15/19 19:00 104 H 22 94 L Current Medications Generic Name Dose Route Start Last Admin Trade Name Freq PRN Reason Stop Dose Admin Acetaminophen 650 mg 07/14/19 16:46 07/16/19 16:11 Feverall 650 Mg [place] 08/09/19 01:02 650 mg Q4H PRN PRN Administration PAIN AND/OR FEVER Atropine Sulfate 0.2 ml 07/14/19 16:46 Atropine Sulfate Eye Drops PO 08/08/19 16:30 UD PRN SECRETIONS Sodium Chloride 1,000 mls @ 20 mls/hr 07/14/19 16:46 07/15/19 00:17 Sodium Chloride 0.9% 1000 Ml IV 08/08/19 16:44 20 mls/hr .Q24H CINTIA Administration Morphine Sulfate 30 mg 07/14/19 16:57 07/16/19 17:55 Morphine Hair Boiler 1 Mg/Ml 30 Ml IV 07/19/19 16:56 30 units PRN PRN Administration PAIN Discontinued Medications Generic Name Dose Route Start Last Admin Trade Name Freq PRN Reason Stop Dose Admin Tuberculin PPD 5 unit 07/14/19 16:46 07/16/19 08:19 Aplisol ID 07/14/19 16:47 Not Given ONCE ONE Intake & Output (Last 24 hours) 07/14/19 07/15/19 07/16/19 07/17/19 11:59 11:59 11:59 11:59 Intake Total 503 476 Output Total 275 675 700 50 Balance -275 -172 -224 -50 Weight 48.3 kg - Vitals & Intake/Output Vital Signs: Vital Signs Temperature 100.7 F 07/16/19 16:00 Pulse Rate 144 H 07/16/19 16:00 Respiratory Rate 07/16/19 16:00 Blood Pressure 76/36 07/16/19 16:00 O2 Sat by Pulse Oximetry 84 L 07/16/19 17:55 Intake & Output: Intake & Output 07/14/19 07/15/19 07/16/19 07/17/19 11:59 11:59 11:59 11:59 Intake Total 503 476 Output Total 275 675 700 50 Balance -275 -172 -224 -50 Weight 48.3 kg - Procedures and Test Procedures and Tests throughout Hospitalization: Therapy Orders & Screens 07/14/19 16:46 OT Screen per Nursing Assess Comment: Protocol Order Physician Instructions: Greater than 3 points order OT Admission Screening Reason For Exam: Triggered on Admission Diagnosis: CVA, HEMIPLEGIA Open Wound/Cellutlitis/Pressure Ulcers: No Acute Fx/ORIF/Change in wt bearing status: No Severe MUSCULOSKELETAL pain: No ADL Dysfunction: No Acute CVA w/Hemiparesis/Hemiplegia: Yes Decreased Functional Mobility/Strength: No Sprain/Strain: No Acute Post-op Mobility Dysfunction: No Total Points: 5 Oxygen Nasal Cannula 2 lpm Comment: Diagnosis: CVA, HEMIPLEGIA Discharge Exam General Appearance: other (unconsciuos) Final Diagnosis/Problem List - Final Discharge Diagnosis/Problem (1) Hemorrhagic stroke Current Visit: Yes Status: Acute Priority: High Code(s): I61.9 - NONTRAUMATIC INTRACEREBRAL HEMORRHAGE, UNSPECIFIED (2) Pancreatic cancer metastasized to intra-abdominal lymph node Current Visit: Yes Status: Acute Code(s): C25.9 - MALIGNANT NEOPLASM OF PANCREAS, UNSPECIFIED; C77.2 - SECONDARY AND UNSP MALIGNANT NEOPLASM OF INTRA- ABD NODES - Discharge Discharge Date: 07/04/19 Disposition: Swing Bed @ [facility] Condition: Critical Prescriptions: No Action Diphenhydramine HCl 25 mg [Benadryl 25 mg Capsule] 25 mg PO DAILY PRN PRN PRN Reason: Allergies Fludrocortisone Acetate [Florinef] 0.1 mg PO DAILY Pantoprazole Sodium [Protonix] 40 mg PO BID Lipase/Protease/Amylase [Creon Dr 24,000 Units Capsule] 1 each PO AC ondansetron HCL [Ondansetron HCl] 8 mg PO Q8HPRN PRN PRN Reason: Nausea Prochlorperazine Maleate 10 mg [Compazine 10 mg] 10 mg PO Q4HPRN PRN PRN Reason: Nausea Levothyroxine Sodium 100 Mcg [Synthroid 100 Mcg] 100 mcg PO DAILY Potassium Chloride 20 meq PO DAILY Follow up with: CHIKA SCOTT MD [Primary Care Provider] - 1 Week
[2019-07-16 18:41] VITALS: O2SAT 82
== END 2019-07-16 23:25 | disposition expired | DRG 65 ==
LOC: MED SURG 16:00
PROVIDERS: ADMIT General Practice; ATTEND General Practice
DX: I61.9 Nontraumatic intracerebral hemorrhage, unspecified (principal); C25.9 Malignant neoplasm of pancreas, unspecified; C77.2 Secondary and unspecified malignant neoplasm of intra-abdominal lymph nodes; C78.7 Secondary malignant neoplasm of liver and intrahepatic bile duct; Z79.899 Other long term (current) drug therapy
CPT/HCPCS: 94760; J2270; A9270-GY